=== PATIENT | female | born 1990 | race American Indian/Alaskan Native ===

== ENCOUNTER 2020-03-06 12:02 | Emergency (ER) | payer SELFPAY ==
[2020-03-06] MEDS ORDERED: ONDANSETRON 4 MG/2 ML INJ IV ONE (13:01)
[2020-03-06] MEDS ORDERED: MORPHINE 2 MG/1 ML INJ IV ONE (13:01)
--- NOTE | 2020-03-06 13:04 | Emergency Department Report ---
ED General Adult HPI - General Chief complaint: Back Pain/Injury Stated complaint: LOWER BACK PAIN Time Seen by Provider: 03/06/20 12:53 Source: patient Mode of arrival: Wheelchair Limitations: No Limitations - History of Present Illness Initial comments: This is a 29-year old female who has somewhat morbidly obese. She presents with right flank pain which she states radiates to the buttock area and then down her leg. The pain has been present waxing and waning since yesterday when she was doing her laundry. She states that the pain gets worse on movement. She does not describe any relationship of the pain with eating or urinating both of which she has had no problem with. She has had no fever or chills. She describes the pain as an aching. She denies any motor or sensory loss or change. Patient admits that she has had similar such pain "a long time ago". She states that she did not seek medical evaluation at the time. She is currently taking a control pill and states that "I do not have periods because I take the control pill". -: Gradual Location: back Radiation: extremity Quality: aching Consistency: constant Improves with: none Worsens with: movement Associated Symptoms: denies other symptoms Treatments Prior to Arrival: none - Related Data Previous Rx's Medication Instructions Recorded Last Taken Type Cyclobenzaprine HCl [Flexeril 5 MG 5 mg PO TID #10 tab 03/06/20 Unknown Rx TAB] HYDROcodone/APAP 5-325 [[place] 1 each PO Q6HR PRN #10 tablet 03/06/20 Unknown Rx 5/325] Allergies Allergy/AdvReac Type Severity Reaction Status Date / Time No Known Allergies Allergy Verified 08/14/14 12:12 ED Review of Systems ROS: Stated complaint: LOWER BACK PAIN Other details as noted in HPI Constitutional: denies: chills, fever Eyes: denies: eye pain, eye discharge, vision change ENT: denies: ear pain, throat pain Respiratory: denies: cough, shortness of breath, wheezing Cardiovascular: denies: chest pain, palpitations Endocrine: no symptoms reported Gastrointestinal: denies: abdominal pain, nausea, diarrhea Genitourinary: denies: urgency, dysuria, discharge Musculoskeletal: as per HPI, back pain. denies: joint swelling, arthralgia Skin: denies: rash, lesions Neurological: denies: headache, weakness, paresthesias Psychiatric: denies: anxiety, depression Hematological/Lymphatic: denies: easy bleeding, easy bruising ED Past Medical Hx - Past Medical History Previous Medical History?: No Hx Hypertension: No Hx Congestive Heart Failure: No Hx Diabetes: No Hx Deep Vein Thrombosis: No Hx Renal Disease: No Hx Sickle Cell Disease: No Hx Seizures: No Hx Asthma: No Hx COPD: No Hx HIV: No - Surgical History Past Surgical History?: Yes Additional Surgical History: C section - Social History Smoking Status: Never Smoker Substance Use Type: None - Medications Home Medications: Home Medications Medication Instructions Recorded Confirmed Last Taken Type Cyclobenzaprine HCl [Flexeril 5 MG 5 mg PO TID #10 tab 03/06/20 Unknown Rx TAB] HYDROcodone/APAP 5-325 [[place] 1 each PO Q6HR PRN #10 tablet 03/06/20 Unknown Rx 5/325] ED Physical Exam - General Limitations: No Limitations General appearance: alert, obese, other (Uncomfortable) - Head Head exam: Present: atraumatic, normocephalic - Eye Eye exam: Present: normal appearance. Absent: scleral icterus - ENT ENT exam: Present: mucous membranes moist - Neck Neck exam: Present: normal inspection. Absent: meningismus - Respiratory Respiratory exam: Present: normal lung sounds bilaterally. Absent: respiratory distress - Cardiovascular Cardiovascular Exam: Present: regular rate, normal rhythm. Absent: systolic murmur, diastolic murmur, rubs, gallop - GI/Abdominal GI/Abdominal exam: Present: soft, normal bowel sounds. Absent: distended, tenderness, guarding, rebound, rigid - Extremities Exam Extremities exam: Present: normal inspection, other (Straight leg raise is negative bilaterally). Absent: full ROM, tenderness, normal capillary refill, pedal edema, joint swelling, calf tenderness - Back Exam Back exam: Present: normal inspection. Absent: CVA tenderness (R), CVA tenderness (L), muscle spasm, paraspinal tenderness, vertebral tenderness - Neurological Exam Neurological exam: Present: alert, oriented X3, CN II-XII intact. Absent: motor sensory deficit - Psychiatric Psychiatric exam: Present: normal affect, anxious - Skin Skin exam: Present: warm, dry, intact, normal color. Absent: rash ED Course Vital Signs 03/06/20 12:05 Temperature 98.5 F Pulse Rate 111 H Respiratory 16 Rate Blood Pressure 150/90 O2 Sat by Pulse 97 Oximetry - Reevaluation(s) Reevaluation #1: Patient symptoms entirely improved with analgesia. She had no spinal pain or paraspinal tenderness. I do think she needs imaging at this juncture. She will be referred to orthopedics for outpatient work-up should the problem persist. It appears to be musculoskeletal. 03/06/20 15:19 ED Medical Decision Making - Lab Data Result diagrams: 03/06/20 12:34 03/06/20 12:55 Critical care attestation.: If time is entered above; I have spent that time in minutes in the direct care of this critically ill patient, excluding procedure time. ED Disposition Clinical Impression: Musculoskeletal back pain Disposition: - TO HOME OR SELFCARE Is pt being admited?: No Does the pt Need Aspirin: No Condition: Stable Instructions: Low Back Strain (ED) Additional Instructions: Follow-up with orthopedist. Return to the emergency department any acute change or recurrent symptoms. Prescriptions: Cyclobenzaprine HCl [Flexeril 5 MG TAB] 5 mg PO TID #10 tab HYDROcodone/APAP 5-325 [[place] 5/325] 1 each PO Q6HR PRN #10 tablet PRN Reason: Pain Referrals: PRIMARY CARE, [Primary Care Provider] - 3-5 Days NATIVIDAD OGLESBY MD [Staff Physician] - 3-5 Days Time of Disposition: 15:20
[2020-03-06 13:14] LABS: Basophils # (Auto) 0.1 K/mm3 (0.0-0.1); Basophils % (Auto) 0.8 % (0.0-1.8); Eosinophils # (Auto) 0.6 K/mm3 (0.0-0.4); Eosinophils % (Auto) 7.4 % (0.0-4.3); Hematocrit 38.3 % (30.3-42.9); Hemoglobin 13.1 gm/dl (10.1-14.3); Lymphocytes # (Auto) 1.6 K/mm3 (1.2-5.4); Lymphocytes % (Auto) 21.3 % (13.4-35.0); Mean Corpuscular HGB Conc 34 % (30-34); Mean Corpuscular Volume 86 fl (79-97); Monocytes # (Auto) 0.4 K/mm3 (0.0-0.8); Monocytes % (Auto) 5.2 % (0.0-7.3); Platelet Count 251 K/mm3 (140-440); Red Blood Count 4.46 M/mm3 (3.65-5.03); Red Cell Distribution Width 12.9 % (13.2-15.2)
[2020-03-06 13:39] LABS: Alanine Aminotransferase 19 units/L (7-56); Blood Urea Nitrogen 9 mg/dL (7-17); Calcium 9.1 mg/dL (8.4-10.2); Hemolysis Index 6
[2020-03-06 13:45] LABS: BUN/Creatinine Ratio 15; Bilirubin,Direct < 0.2 mg/dL (0-0.2)
[2020-03-06 14:35] LABS: Bilirubin,Urine NEG (Negative); Blood,Urine NEG (Negative); Color,Urine Straw (Yellow); Mucus,Urine FEW /HPF; Protein,Urine <15 mg/dL mg/dL (Negative); RBC,Urine < 1.0 /HPF (0.0-6.0); Urobilinogen,Urine < 2.0 mg/dL (<2.0); WBC,Urine < 1.0 /HPF (0.0-6.0)
[2020-03-06 15:37] VITALS: BP 127/83
== END 2020-03-06 15:36 | disposition home or self-care (01) ==
LOC: ED 14:40
DX: M54.5 Low back pain (principal); Z79.899 Other long term (current) drug therapy
CPT/HCPCS: 36415; 80048; 80076; 81001; 83690; 84703; 85025; 96374; 96375; 99283; J2270; J2405

== ENCOUNTER 2021-04-24 15:46 | Emergency (ER) | payer SELFPAY ==
[2021-04-24 15:55] VITALS: BP 133/84
--- NOTE | 2021-04-24 17:07 | Emergency Department Report ---
ED Back Pain/Injury HPI - General Chief Complaint: Back Pain/Injury Stated Complaint: PAIN IN LT THIGH Time Seen by Provider: 04/24/21 16:11 Source: patient Limitations: No Limitations - History of Present Illness Initial Comments: 30-year-old female, reports history of sciatica, presents to ED with right low back pain since yesterday. Patient states she was bending over and placing something in her refrigerator. States when she stood up she had pain in her right low back. Patient states pain is radiating into the right buttock and hip area. She denies any weakness or numbness. Patient also reports some pain in the left anterior lateral thigh, that has been intermittent over the last 6 months. She denies any injury. There is no rash or skin discoloration present. She denies any fever. MD Complaint: back pain -: days(s) (2) Similar Symptoms Previously: Yes Place: home Radiation: buttocks Severity: moderate Quality: aching Consistency: intermittent Improves With: immobilization Worsens With: walking, other (Bending over) Context: bending Associated Symptoms: denies: weakness, numbness, difficulty walking, difficulty urinating, incontinence, fever/chills, abdominal pain - Related Data Previous Rx's Medication Instructions Recorded Last Taken Type Cyclobenzaprine HCl [Flexeril 5 MG 5 mg PO TID #10 tab 03/06/20 Unknown Rx TAB] HYDROcodone/APAP 5-325 [[place] 1 each PO Q6HR PRN #10 tablet 03/06/20 Unknown Rx 5/325] Naproxen [Naprosyn] 500 mg PO BID #20 tablet 04/24/21 Unknown Rx methOCARBAMOL [Robaxin TAB] 500 mg PO Q8HR PRN #20 tablet 04/24/21 Unknown Rx Allergies Allergy/AdvReac Type Severity Reaction Status Date / Time No Known Allergies Allergy Verified 08/14/14 12:12 ED Review of Systems ROS: Stated complaint: PAIN IN LT THIGH Other details as noted in HPI Comment: All other systems reviewed and negative Constitutional: denies: chills, fever Gastrointestinal: denies: abdominal pain Musculoskeletal: back pain Neurological: denies: weakness, numbness ED Past Medical Hx - Past Medical History Hx Hypertension: No Hx Congestive Heart Failure: No Hx Diabetes: No Hx Deep Vein Thrombosis: No Hx Renal Disease: No Hx Sickle Cell Disease: No Hx Seizures: No Hx Asthma: No Hx COPD: No Hx HIV: No - Surgical History Additional Surgical History: C section - Social History Smoking Status: Never Smoker Substance Use Type: None - Medications Home Medications: Home Medications Medication Instructions Recorded Confirmed Last Taken Type Cyclobenzaprine HCl [Flexeril 5 MG 5 mg PO TID #10 tab 03/06/20 Unknown Rx TAB] HYDROcodone/APAP 5-325 [[place] 1 each PO Q6HR PRN #10 tablet 03/06/20 Unknown Rx 5/325] Naproxen [Naprosyn] 500 mg PO BID #20 tablet 04/24/21 Unknown Rx methOCARBAMOL [Robaxin TAB] 500 mg PO Q8HR PRN #20 tablet 04/24/21 Unknown Rx ED Physical Exam - General Limitations: No Limitations General appearance: alert, in no apparent distress, obese - Head Head exam: Present: atraumatic, normocephalic - Eye Eye exam: Present: normal appearance, EOMI - ENT ENT exam: Present: mucous membranes moist - Neck Neck exam: Present: normal inspection - Respiratory Respiratory exam: Present: normal lung sounds bilaterally. Absent: respiratory distress - Cardiovascular Cardiovascular Exam: Present: regular rate, normal rhythm - GI/Abdominal GI/Abdominal exam: Present: soft. Absent: distended, tenderness - Extremities Exam Extremities exam: Present: normal inspection (Left thigh appears normal; no erythema, bruising or swelling; no tenderness on exam) - Back Exam Back exam: Present: paraspinal tenderness (Right lower lumbar) - Neurological Exam Neurological exam: Present: alert, oriented X3, normal gait. Absent: motor sensory deficit - Psychiatric Psychiatric exam: Present: normal affect, normal mood - Skin Skin exam: Present: warm, dry, intact, normal color ED Course Vital Signs 04/24/21 15:54 Temperature 98.2 F Pulse Rate 105 H Respiratory 18 Rate Blood Pressure 133/84 [Right] ED Medical Decision Making - Medical Decision Making 30-year-old female presents to ED with acute on chronic exacerbation of her sciatica. Patient reported some right-sided low back pain radiating into the right buttock. No neuro deficits on exam. No concern for cauda equina syndrome. Patient also reporting some left anterior lateral thigh pain that has been intermittent over the last 6 months. Left lower extremity exam is normal. Low suspicion for DVT. Patient will be discharged at this time with prescriptions. Outpatient follow-up advised, return precautions given. - Differential Diagnosis Lumbar radiculopathy Critical care attestation.: If time is entered above; I have spent that time in minutes in the direct care of this critically ill patient, excluding procedure time. ED Disposition Clinical Impression: Left thigh pain, Lumbar radiculopathy Disposition: HOME / SELF CARE / HOMELESS Is pt being admited?: No Condition: Stable Instructions: Sciatica, [id number], What You Need to Know About Chronic Back Pain Prescriptions: Naproxen [Naprosyn] 500 mg PO BID #20 tablet methOCARBAMOL [Robaxin TAB] 500 mg PO Q8HR PRN #20 tablet PRN Reason: Muscle Spasm Referrals: [facility] [Provider Group] - 3-5 Days [facility] [Provider Group] - 3-5 Days [facility] [Outside] - 3-5 Days Time of Disposition: 17:04
== END 2021-04-24 17:36 | disposition home or self-care (01) ==
LOC: ED 15:46
DX: M54.16 Radiculopathy, lumbar region (principal); M79.652 Pain in left thigh; Z79.899 Other long term (current) drug therapy
CPT/HCPCS: 99281